=== PATIENT | male | born 1955 | race Caucasian/White ===

== ENCOUNTER 2020-05-01 10:44 | Inpatient (IN) ==
--- NOTE | 2020-04-18 15:29 | PAT Medication Instructions ---
Medication Instructions Date of Service April 18, 2020 Home Medications acetaminophen [Tylenol Extra Strength] 1,000 mg PO Q6H PRN atorvastatin [Lipitor] 20 mg PO PM cholecalciferol (vitamin D3) [Vitamin D3] 50 mcg PO QPM cyanocobalamin (vitamin B-12) 1,000 mcg PO QAM gabapentin 300 mg PO QAM hydrochlorothiazide 50 mg PO QAM DO NOT take the morning of surgery cyanocobalamin (vitamin B-12) 1,000 mcg PO QAM gabapentin 300 mg PO QAM hydrochlorothiazide 50 mg PO QAM Take morning of surgery With a small sip of water, OTHERWISE NOTHING TO EAT OR DRINK AFTER MIDNIGHT: acetaminophen [Tylenol Extra Strength] 1,000 mg PO Q6H PRN (if needed, may be taken up to four hours before surgery) Take evening before surgery acetaminophen [Tylenol Extra Strength] 1,000 mg PO Q6H PRN (if needed) atorvastatin [Lipitor] 20 mg PO PM cholecalciferol (vitamin D3) [Vitamin D3] 50 mcg PO QPM Other Notes If you have any questions please call us at [phone] or [phone] or [phone] or [phone]
--- NOTE | 2020-04-20 12:58 | Anesthesiology Consultation ---
Date of Service April 20, 2020 Assessment & Plan (1) Encounter for pre-operative examination: COVID Status: As of 04/20 assessment, patient denies travel to endemic area, known exposure/sick contacts, or symptoms of COVID19. Patient instructed that they and their household members must follow strict social distancing guidelines, wear a mask in public and avoid travel/events/gatherings for 14 days prior to surgery. Preoperative COVID19 testing to be completed prior to surgery per surgeon's arrangements (04/28). Patient made aware to self-isolate as much as possible between COVID testing and surgery. Patient is fully vaccinated. 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 Chart Review Chart Review: Acceptable Risk for Surgery and Patient seen in Pre Admission Testing Teaching & Discussion Instructed NPO after midnight before surgery, except medications with 15 cc of water. Medication instructions provided according to the PAT guidelines. History Surgery Operation Date: 05/05/20 07:45 Proposed Procedures p L3-L5 Decompression and Fusion Spinal Cord Monitoring - Tarun Cartwright, Height/Weight Height: 5 ft 8 in Weight: 87.5 kg Allergies Allergy/AdvReac Type Severity Reaction Status Date / Time No Known Allergies Allergy Verified 04/06/20 10:14 Medications Home Medications Medication Instructions Recorded Confirmed Last Taken acetaminophen [Tylenol Extra 1,000 mg PO Q6H PRN 04/06/20 04/06/20 Unknown Strength] atorvastatin [Lipitor] 20 mg PO PM 04/06/20 04/06/20 Unknown cholecalciferol (vitamin D3) 50 mcg PO QPM 04/06/20 04/06/20 Unknown [Vitamin D3] cyanocobalamin (vitamin B-12) 1,000 mcg PO QAM 04/06/20 04/06/20 Unknown gabapentin 300 mg PO QAM 04/06/20 04/06/20 Unknown hydrochlorothiazide 50 mg PO QAM 04/06/20 04/06/20 Unknown Past Medical History Medical History Chronic back pain TO LEGS Hyperlipidemia Hypertension Spinal stenosis Exercise / Class Metabolic Activity II 4-5 Yardwork/Stairs/Walk up hill Past Family History Family History Brother Family history of diabetes mellitus Father Family history of diabetes mellitus Past Surgical History Surgical History Cancer BASAL CELL/SQUAMOUS CELL EXCISION BACK History of adenoidectomy History of cardiac cath 1991-DUE TO FALSE POSITIVE STRESS TEST-NO STENTS-DX'D "PANIC ATTACK" History of cholecystectomy History of colonoscopy X 3 History of herniorrhaphy History of tonsillectomy Past Anesthesia History No Hx of Anesthesia Complications and No Family Hx of Anesthesia Complications History of PONV No Hx of PONV and No Hx of Motion Sickness Social History Smoking Status: Former smoker Do You Dip or Chew Tobacco: No Smoking End Date: QUIT 1975 Hx Alcohol Use: Yes Alcohol type: beer alcohol intake frequency: a few times a week Hx Substance Use: No Review of Systems Pt denies any recent chest pain, shortness of breath, palpitations, cough, fever, URI, or uncontrolled acid reflux. Physical Exam Vital Signs BP: 143/82 P: 65bpm SPO2: 97% RA T: 98.1 F R: 16 ENMT Mouth: + dental restorations (few crowns); no chipped teeth and no loose teeth Thyromental Distance: > or= 3.5 Finger Breadths Mallampati Class: III Neck normal visual inspection; neck extension not limited Respiratory normal respiratory effort, lungs clear to auscultation Cardiovascular RRR, no murmur, no edema Vessels: no carotid bruit Testing Laboratory Results 04/20/20 13:12 04/20/20 13:12 PT 10.0 Seconds (9.0-12.0) 04/20/20 13:12 INR 1.0 (0.9-1.1) 04/20/20 13:12 APTT 24.8 Seconds (21.0-31.0) 04/20/20 13:12 Urine Color Yellow 04/20/20 13:12 Urine Appearance Clear (Clear) 04/20/20 13:12 Urine pH 7.0 (4.5-7.5) 04/20/20 13:12 Ur Specific [place] 1.009 (1.000-1.030) 04/20/20 13:12 Urine Protein Negative (Negative) 04/20/20 13:12 Urine Glucose (UA) Negative (Negative) 04/20/20 13:12 Urine Ketones Negative (Negative) 04/20/20 13:12 Urine Nitrite Negative (Negative) 04/20/20 13:12 Ur Leukocyte Esterase Negative (Negative) 04/20/20 13:12 Blood Type B Positive 04/20/20 13:12 Antibody Screen NEGATIVE 04/20/20 13:12 Electrocardiogram Date: 04/05/20 Findings: + SB @ (53bpm) Chest X-Ray Date: 04/20/20 Findings: + NAD
--- NOTE | 2020-04-20 13:42 | XRay Report ---
XR chest Pre-admission PA/Lat HISTORY: Preop. COMPARISON: None. FINDINGS: An 8 mm right upper lobe nodule. The density is greater than the adjacent bones and therefo re likely represents a calcified granuloma. Otherwise, the lungs are clear. The heart is normal in si ze. No pleural effusions. No pneumothorax. IMPRESSION: No acute process. ACT 112: Negative or not required by law. Electronically signed by: Danny Wynn M.D. 04/20/2020 1:41 PM
[2020-04-20 14:14] LABS: Basophils # (auto) 0.05 K/uL (0-0.2); Basophils % (auto) 0.8 %; Eosinophils # (auto) 0.16 K/uL (0-0.5); Eosinophils % (auto) 2.5 %; Hematocrit (blood only) 43.2 % (42-52); Hemoglobin 15.2 g/dL (14.0-18.0); Immature Granulocytes # (auto) 0.01 K/uL (0.00-0.02); Immature Granulocytes % (auto) 0.2 %; Lymphocytes # (auto) 2.45 K/uL (1.2-3.4); Lymphocytes % (auto) 38.8 %; Mean Corpuscular Hemoglobin 32.4 pg (25-34); Mean Corpuscular Hgb Conc 35.2 g/dL (32-36); Mean Corpuscular Volume 92.1 fL (80-100); Mean Platelet Volume 12.8 fL (7.4-10.4); Monocytes # (auto) 0.41 K/uL (0.11-0.59); Monocytes % (auto) 6.5 %; Neutrophils # (auto) 3.24 K/uL (1.4-6.5); Neutrophils % (auto) 51.2 %; Platelet Count 221 K/uL (130-400); RDW Coefficient of Variation 12.7 % (11.5-14.5); RDW Standard Deviation 42.7 fL (36.4-46.3); Red Blood Count 4.69 M/uL (4.7-6.1); White Blood Count 6.32 K/uL (4.8-10.8)
[2020-04-20 14:27] LABS: Partial Thromboplastin Ratio 0.9; Partial Thromboplastin Time 24.8 Seconds (21.0-31.0)
[2020-04-20 14:30] LABS: Appearance Urine Clear (Clear); BUN Creatinine Ratio 18.2 (10-20); Bilirubin Urine Negative (Negative); Blood Urine Negative (Negative); Calcium 9.2 mg/dl (8.5-10.1); Color Urine Yellow; Creatinine Clr Calc Pharmacy 104.2 ml/min; Est GFR (African American) 110.8; Est GFR (Non-African American) 95.6; Glucose Urine UA Negative (Negative); Ketones Urine Negative (Negative); Leukocyte Esterase Urine Negative (Negative); Nitrite Urine Negative (Negative); Potassium 3.4 mmol/L (3.5-5.1); Protein Urine Negative (Negative); Specific Gravity Urine 1.009 (1.000-1.030); Urobilinogen Urine Negative (Negative)
[~2020-05-01 10:44] MED LIST: ACETAMINOPHEN 500 MG TAB PO SCH; CeleBREX 200 MG CAP PO SCH; GABAPENTIN 300 MG CAP PO SCH; LR 15ML/HR IV SCH; ceFAZolin 2000MG 2,000 MG/15 ML SYR IV SCH
[2020-05-01] MEDS ORDERED: PROMETHAZINE HCL 6.25 MG in SODIUM CHLORIDE 0.9% 50 ML IV PRN (12:17)
[2020-05-01] MEDS ORDERED: ATROPINE SULFATE 0.1 MG/ML 10ML SYR IV PRN (12:17)
[2020-05-01] MEDS ORDERED: ePHEDrine sulfate 50 MG/ML AMP IV PRN (12:17)
[2020-05-01] MEDS ORDERED: ONDANSETRON INJ 2 MG/ML 2 ML VIAL IV PRN ×2 (12:17→16:21)
[2020-05-01] MEDS ORDERED: HYDROmorphone INJ 2 MG/ML SYR/VIAL IV PRN (12:17)
[2020-05-01] MEDS ORDERED: fentaNYL citrate 100 MCG/2 ML VIAL IV PRN (12:17)
[2020-05-01] MEDS ORDERED: MIDAZOLAM HCL 1 MG/ML 2ML VIAL ONE (12:18)
[2020-05-01] MEDS ORDERED: fentaNYL citrate 100 MCG/2 ML VIAL ONE (12:19)
--- NOTE | 2020-05-01 12:35 | History & Physical Bridge Note ---
Date of Service May 01, 2020 History & Physical Bridge Note I have examined the patient, reviewed the History & Physical and in the interval since the performance of the History & Physical I have noted the following changes of clinical significance: no changes noted
--- NOTE | 2020-05-01 12:36 | History & Physical Report ---
Date of Service May 01, 2020 Assessment & Plan (1) Neurogenic claudication due to lumbar spinal stenosis: Admission and Anticipated Discharge Date Admission Date: L3-L5 decompression fusion History of Present Illness Chief Complaint: Back and bilateral leg pain Primary Care Provider: Alicia Joseph DO This is a 64-year-old male presents with chronic persistent back and bilateral leg pain. After failing course of nonoperative care is here for surgical invention. Allergies Allergy/AdvReac Type Severity Reaction Status Date / Time No Known Allergies Allergy Verified 05/01/20 11:05 Home Medications Medication Instructions Recorded Confirmed Type acetaminophen [Tylenol Extra 1,000 mg PO Q6H PRN 04/06/20 05/01/20 History Strength] atorvastatin [Lipitor] 20 mg PO PM 04/06/20 05/01/20 History cholecalciferol (vitamin D3) 50 mcg PO QPM 04/06/20 05/01/20 History [Vitamin D3] cyanocobalamin (vitamin B-12) 1,000 mcg PO QAM 04/06/20 05/01/20 History gabapentin 300 mg PO QAM 04/06/20 05/01/20 History hydrochlorothiazide 50 mg PO QAM 04/06/20 05/01/20 History Past Med/Surg History Medical History Chronic back pain TO LEGS Hyperlipidemia Hypertension Spinal stenosis Surgical History Cancer BASAL CELL/SQUAMOUS CELL EXCISION BACK History of adenoidectomy History of cardiac cath 1991-DUE TO FALSE POSITIVE STRESS TEST-NO STENTS-DX'D "PANIC ATTACK" History of cholecystectomy History of colonoscopy X 3 History of herniorrhaphy History of tonsillectomy Family History Brother Family history of diabetes mellitus Father Family history of diabetes mellitus Social History Smoking Status: Former smoker Smoking End Date: QUIT 1975; Second Hand Exposure: No; Do You Dip or Chew Tobacco: No; Hx Alcohol Use: Yes Alcohol type: beer Hx Substance Use: No Preferred Language: Lithuanian Communication Ability: Effective Braker Passenger Train Required: No Beliefs That Will Affect Care: None Current Living Situation: Spouse Other Information That Helps Us Care for You: No Feels Safe at Home: Yes Safety Concerns: Feels Safe At This Time Assistive Devices: Glasses and Hearing Aid - Bilateral Physical Exam Physical Exam: Patient is alert and oriented Heart regular rate and rhythm Lungs clear to auscultation Results & Data ([facility]) Vital Signs (Past 12 Hours) Vital Signs Temp Pulse Resp BP Pulse Ox 05/01/20 11:00 36.5 C 67 20 147/76 H 98
[2020-05-01] MEDS ORDERED: BUPIVACAINE/EPINEPHRINE 0.5% MPF 1:200,000 30 ML VIAL ONE (12:43)
[2020-05-01] MEDS ORDERED: BACITRACIN INJ 50,000 UNIT VIAL ONE (12:43)
[2020-05-01] MEDS ORDERED: FLOSEAL HEMOSTATIC MATRIX 10ML TOP ONE (13:50)
[2020-05-01] MEDS ORDERED: NEOSTIGMINE METHYLSULFATE 1 MG/ML 10ML VIAL ONE (14:50)
[2020-05-01] MEDS ORDERED: LIDOCAINE HCL 2% 2 ML VIAL/AMP(20MG/ML) INFIL ONE (14:50)
[2020-05-01] MEDS ORDERED: DEXAMETHASONE SOD INJ 4 MG/ML VIAL ONE (14:50)
[2020-05-01] MEDS ORDERED: GLYCOPYRROLATE 0.2 MG/ML VIAL ONE (14:50)
[2020-05-01] MEDS ORDERED: PROPOFOL IV EMULSION 10 MG/ML 20 ML VIAL IV ONE (14:50)
[2020-05-01] MEDS ORDERED: ePHEDrine sulfate 50 MG/ML SYR ONE (14:50)
[2020-05-01] MEDS ORDERED: ONDANSETRON INJ 2 MG/ML 2 ML VIAL ONE (14:50)
[2020-05-01] MEDS ORDERED: SUCCINYLCHOLINE CHLORIDE 20 MG/ML 10 ML VIAL IV ONE (14:51)
[2020-05-01] MEDS ORDERED: HYDROmorphone INJ 2 MG/ML SYR/VIAL ONE (14:52)
--- NOTE | 2020-05-01 15:01 | Operative Report ---
Post Operative Report Pre & Post Diagnosis Operation Date: 05/01/20 12:25 Pre-Op Diagnosis: Lumbar Spinal Stenosis with Neurogenic Claudicatio Post-Op Diagnosis: Lumbar Spinal Stenosis with Neurogenic Claudicatio I identified the patient and participated in the time-out.: Yes Procedure Operation Date: 05/01/20 12:25 Actual Procedures #1 Lumbar compression with bilateral medial facetectomies and foraminotomies L3-4 and L4-5. #2 posterior spinal fusion L2-3 L3-4 per #3 placement posterior instrumentation L3-4 and L4-5. #4 interbody fusion L4-5. #5 placement peek cage 12 x 26 mm at L4-5. #6 placement locally harvested morselized autograft in the posterior lateral gutters. #7 placement infuse collagen sponge, master graft in the posterior lateral gutters and ostial amp interbody space. Surgeon Tarun Cartwright DO Energy Manager Jennie Damon Estimated Blood Loss 100 Findings Consistent with Post-Op Diagnosis Specimens None Indications This is a 64-year-old male who presents with above-mentioned diagnosis after failing course of nonoperative care is here for the above-mentioned procedure. Description of Procedure Patient was met with identified informed consent obtained. Patient was then taken to the operative suite underwent a patient placed in a prone position [facility] table top Sonny frame. All bony prominences well-padded eyes inspected to ensure no external pressure placed upon the. This point the lumbar spine was prepped and draped in a sterile fashion. Sharp dissection with the assistance of Bovie cautery was performed down to and exposing the lamina and transverse processes of L3-L4 and L5 bilaterally. From caudal to cephalad fashion complete laminectomy of L4 and L3 was performed including bilateral medial facetectomies and foraminotomies addressing severe spinal stenosis. Pedicle screws were then placed in L3-L4-L5 bilaterally with assistance of fluoroscopy the purposes javy placed. By way of a transfemoral approach on right complete discectomy was performed endplates curetted to subcortical any bone and a 12 x 26 mm peek cage filled with osteobone graft tapped in position. The rods were then locked into final position bilaterally. The transverse processes of L3-L4-L5 were then burred to subcortical bleeding bone. Infuse collagen sponge master graft local autograft was placed in the posterior lateral gutters. 15 round SANDRA drain inserted. The incision was then closed with 1 Vicryl in the fascia 2-0 Vicryl subcutaneously and 4 Monocryl for final skin closure. Steri-Strip sterile dressings placed. Patient waken taken PACU stable condition. Please note spinal cord monitoring was utilized at the procedure no changes noted. Lastly Jennie Damon was present at the entire procedure and all the patient positioning complex portions of the surgery and final skin closure. I attest to the content of the Intraoperative Record and any orders documented therein. Any exceptions are noted below.
--- NOTE | 2020-05-01 15:05 | Fluoroscopy Report ---
FL lumbar spine 2-3V HISTORY: 64 years-old Male L3-L5 DECOMPRESSION AND FUSION STATUS post lumbar spine fusion COMPARISON: MR lumbar spine 03/23/2020 TECHNIQUE: 2 spot fluoroscopic images of the lumbar spine were obtained utilizing 20.6 seconds fluoro scopy time FINDINGS: Posterior interbody javy and screw fusion with laminectomy changes at L3-L5. Discectomy changes at L4- L5. Alignment is satisfactory and the hardware appears intact. No acute fracture or unexpected opaque foreign body. Multilevel spondylitic spurring. IMPRESSION: Fluoroscopic assistance as above. ACT 112: Negative or not required by law. The above report was generated using voice recognition software. It may contain grammatical, syntax o r spelling errors. Electronically signed by: Amanuel Chaudhry M.D. 05/01/2020 3:04 PM
--- NOTE | 2020-05-01 15:48 | Anesthesiology Progress Note ---
Date of Service May 01, 2020 Anesthesia Post Procedure Vital Signs Vital Signs: Temp Pulse Pulse Resp BP Pulse Ox 05/01/20 15:40 66 18 109/57 L 95 05/01/20 15:30 68 14 113/55 L 97 05/01/20 15:20 56 L 18 101/56 L 97 05/01/20 15:16 36.3 C L 55 L 21 96/51 L 100 05/01/20 11:00 36.5 C 67 20 147/76 H 98 Transfer of Care Handoff Completed per policy Notes Mental Status: alert / awake / arousable and participated in evaluation Patient Amnestic to Procedure: Yes Nausea / Vomiting: adequately controlled Pain: adequately controlled Airway Patency, RR, SpO2: stable & adequate BP & HR: stable & adequate Hydration State: stable & adequate Anesthetic Complications: no major complications apparent
[2020-05-01] MEDS ORDERED: HYDROmorphone INJ 1 MG/ML SYRINGE IV PRN (16:21)
[2020-05-01] MEDS ORDERED: MAGNESIUM HYDROXIDE SUSP 30 ML UDC PO PRN (16:21)
[2020-05-01] MEDS ORDERED: LORazepam 0.5 MG TAB PO PRN (16:21)
[2020-05-01] MEDS ORDERED: DO NOT ADMINISTER FLU VACCINE PRN (16:21)
[2020-05-01] MEDS ORDERED: NALOXONE HCL 0.4 MG/1 ML VIAL/CARP IV PRN (16:21)
[2020-05-01] MEDS ORDERED: SOD PHOSPHATE/SOD BIPHOSPHATE ENEMA 132 ML BTL PR PRN (16:21)
[2020-05-01] MEDS ORDERED: ACETAMINOPHEN 500 MG TAB PO PRN (16:21)
[2020-05-01] MEDS ORDERED: ALUMINUM/MAGNESIUM SUSP 30 ML UDC PO PRN (16:21)
[2020-05-01] MEDS ORDERED: hydrOXYzine HCl 25 MG TAB PO PRN (16:21)
[2020-05-01] MEDS ORDERED: NON-FORMULARY MEDICATION (Acetaminophen 500 mg Capsule) PO PRN (16:21)
[2020-05-01] MEDS ORDERED: ACETAMINOPHEN 1,000 MG/100 ML VIAL IV PRN (16:21)
[2020-05-01] MEDS ORDERED: FAMOTIDINE 20 MG TAB PO PRN (16:21)
[2020-05-01] MEDS ORDERED: traMADol HCL 50 MG TABLET PO PRN (16:21)
[2020-05-01] MEDS ORDERED: LORazepam 0.5 MG/1 ML VIAL IV PRN (16:21)
[2020-05-01] MEDS ORDERED: PROMETHAZINE HCL 12.5 MG in SODIUM CHLORIDE 0.9% 50 ML IV PRN (16:21)
[2020-05-01] MEDS ORDERED: DO NOT ADMINISTER PNEUMOCOCCAL VACCINE PRN (16:21)
[2020-05-01] MEDS ORDERED: diphenhydrAMINE Capsule 25 MG CAP PO PRN (16:21)
[2020-05-01] MEDS ORDERED: HYDROmorphone INJ 0.5 MG/0.5 ML SYR IV PRN (16:21)
[2020-05-01] MEDS ORDERED: METOCLOPRAMIDE HCL INJ 5 MG/ML 2 ML VIAL IV PRN (16:21)
[2020-05-01] MEDS ORDERED: ONDANSETRON 4 MG OD TAB PO PRN (16:21)
[2020-05-01] MEDS: LACTATED RINGER'S 1,000 ML IV SCH (16:53)
[2020-05-01] MEDS: KETOROLAC TROMETHAMINE 15 MG/ML VIAL IV SCH (17:45)
--- NOTE | 2020-05-01 18:28 | Hospitalist Progress Note ---
Date of Service May 01, 2020 Assessment & Plan (1) Neurogenic claudication due to lumbar spinal stenosis: post op, doing well. overall per ortho (2) Hypertension: BP acceptable. continue home hydrochlorothiazide. follow (3) Hyperlipidemia: continue atorvastatin (4) DVT prophylaxis: per ortho (SCDs) (5) Discharge planning issues: appears to be doing well post op. continue current care and follow. Admission and Anticipated Discharge Date Admission Date: May 01, 2020 Subjective feeling good post op no significant pain and notes that legs feel better already. "i'm ready to go hiking or biking" no complaints at this time Review of Systems Review of Systems: All systems reviewed & are unremarkable except as noted in HPI & below Physical Exam Physical Exam: gen aaox3 pleasant nad heent nc at mmm breathing unlabored no accessory muscles good effort skin no rashes no pallor or icterus neuro no focal deficits Results & Data Results & Data ([facility]) Vital Signs (Past 12 Hours) Vital Signs Temp Pulse Pulse Pulse Resp BP Pulse Ox 05/01/20 17:40 97.2 F L 78 18 113/64 94 05/01/20 16:50 98.4 F 66 16 102/62 93 05/01/20 16:44 82 16 114/71 96 05/01/20 16:21 97.5 F L 67 16 113/68 99 05/01/20 16:00 97.5 F L 73 15 114/66 97 05/01/20 15:50 73 14 102/57 L 97 05/01/20 15:40 66 18 109/57 L 95 05/01/20 15:30 68 14 113/55 L 97 05/01/20 15:20 56 L 18 101/56 L 97 05/01/20 15:16 97.3 F L 55 L 21 96/51 L 100 05/01/20 11:00 97.7 F 67 20 147/76 H 98 PG Care Time/CCT Total # of Minutes Spent Total Time Spent with Patient: Total time spent is greater than 50% in coordination of care (as documented) at patient's floor/unit and/or counseling patient: Coding Level of Care Code 76691 Subseq Hosp Care Lvl 2 Diagnoses Neurogenic claudication due to lumbar spinal stenosis M48.062 Hypertension I10 Hyperlipidemia E78.5 DVT prophylaxis Z29.9 Discharge planning issues Z02.9
[2020-05-01] MEDS: oxyCODONE HCL IR 5 MG TAB (IMMEDIATE RELEASE) PO PRN (19:50)
[2020-05-01] MEDS: ATORVASTATIN 20 MG TAB PO SCH (20:52)
[2020-05-01] MEDS: ceFAZolin 2000MG 2,000 MG/15 ML SYR IV SCH (20:52)
[2020-05-01] MEDS: CHOLECALCIFEROL 1,000 UNITS 25 MCG TAB PO SCH (20:53)
[2020-05-01] MEDS: DOCUSATE SODIUM/SENNA 50/8.6MG TAB PO SCH (20:53)
[2020-05-02] MEDS: oxyCODONE HCL IR 5 MG TAB (IMMEDIATE RELEASE) PO PRN ×2 (00:07→20:04)
[2020-05-02] MEDS: KETOROLAC TROMETHAMINE 15 MG/ML VIAL IV SCH ×3 (00:08→12:22)
[2020-05-02] MEDS: LACTATED RINGER'S 1,000 ML IV SCH (03:14)
[2020-05-02] MEDS ORDERED: LACTATED RINGER'S 1,000 ML IV SCH (03:30)
[2020-05-02] MEDS: ceFAZolin 2000MG 2,000 MG/15 ML SYR IV SCH (05:35)
[2020-05-02 06:38] LABS: Hematocrit (blood only) 33.7 % (42-52); Hemoglobin 11.7 g/dL (14.0-18.0); Immature Granulocytes # (auto) 0.02 K/uL (0.00-0.02); Immature Granulocytes % (auto) 0.1 %; Lymphocytes # (auto) 1.33 K/uL (1.2-3.4); Lymphocytes % (auto) 8.8 %; Mean Corpuscular Hemoglobin 32.1 pg (25-34); Mean Corpuscular Hgb Conc 34.7 g/dL (32-36); Mean Corpuscular Volume 92.3 fL (80-100); Mean Platelet Volume 11.2 fL (7.4-10.4); Monocytes # (auto) 1.34 K/uL (0.11-0.59); Monocytes % (auto) 8.8 %; Neutrophils # (auto) 12.48 K/uL (1.4-6.5); Neutrophils % (auto) 82.3 %; Platelet Count 211 K/uL (130-400); RDW Coefficient of Variation 12.5 % (11.5-14.5); RDW Standard Deviation 42.6 fL (36.4-46.3); Red Blood Count 3.65 M/uL (4.7-6.1); White Blood Count 15.17 K/uL (4.8-10.8)
[2020-05-02 07:07] LABS: BUN Creatinine Ratio 18.1 (10-20); Calcium 8.5 mg/dl (8.5-10.1); Est GFR (African American) 98.8; Est GFR (Non-African American) 85.2; Potassium 3.5 mmol/L (3.5-5.1)
[2020-05-02] MEDS: CYANOCOBALAMIN 500 MCG TABLET (VITAMIN B-12) PO SCH (08:51)
[2020-05-02] MEDS: GABAPENTIN 300 MG CAP PO SCH (08:51)
[2020-05-02] MEDS ORDERED: hydroCHLOROthiazide 25 MG TAB PO SCH (09:00)
--- NOTE | 2020-05-02 10:53 | Orthopedic Progress Note ---
Date of Service May 02, 2020 Assessment & Plan (1) Neurogenic claudication due to lumbar spinal stenosis: Admission and Anticipated Discharge Date Admission Date: May 01, 2020 At this time we will continue physical therapy monitor his SANDRA output anticipate discharge home in the next few days. Subjective Patient's back pain is controlled leg pain improved. Physical Exam Physical Exam: On exam patient is in the chair at the bedside. Is good strength testing. Appears comfortable. Results & Data ([facility]) Vital Signs (Past 12 Hours) Vital Signs Temp Pulse Resp BP BP Pulse Ox 05/02/20 09:11 75 16 96/59 L 93 05/02/20 08:16 36.9 C 72 17 89/53 L 99 05/02/20 03:24 69 16 105/57 L 97 05/02/20 02:58 36.4 C L 61 16 90/49 L 96
[2020-05-02] MEDS: POLYETHYLENE (MIRALAX) 17 GM PACK PO SCH ×2 (12:21→17:57)
--- NOTE | 2020-05-02 19:07 | Hospitalist Progress Note ---
Date of Service May 02, 2020 Assessment & Plan (1) Neurogenic claudication due to lumbar spinal stenosis: post op, doing well overall, did have a degree of not unexpected acute blood loss anemia, with resultant lower and (but asymptomatic) blood pressure. overall per ortho (2) Hypertension: As above noted, blood pressure is a little bit on the low end of acceptable, hydrochlorothiazide held. Follow into tomorrow (3) Hyperlipidemia: continue atorvastatin (4) DVT prophylaxis: per ortho (SCDs) (5) Discharge planning issues: appears to be doing well post op. continue current care and follow. Admission and Anticipated Discharge Date Admission Date: May 01, 2020 Subjective Feeling okay. Had a brief headache this morning, on the right side of his head, but it totally resolved. No weakness no lightheadedness. No significant pain. Able to get out of bed without much difficulty. Case discussed with orthopedics as well. Review of Systems Review of Systems: All systems reviewed & are unremarkable except as noted in HPI & below Physical Exam Physical Exam: General is awake and alert pleasant no distress. HEENT normocephalic atraumatic mucous membranes moist. Breathing unlabored no accessory muscle use good effort. Skin shows no rashes no pallor or icterus. Neuro shows no focal deficits. Results & Data Results & Data ([facility]) Vital Signs (Past 12 Hours) Vital Signs Temp Pulse Resp BP BP Pulse Ox 05/02/20 14:42 98.8 F 79 16 110/66 95 05/02/20 12:24 103/62 05/02/20 09:11 75 16 96/59 L 93 05/02/20 08:16 98.4 F 72 17 89/53 L 99 PG Care Time/CCT Total # of Minutes Spent Total Time Spent with Patient: Total time spent is greater than 50% in coordination of care (as documented) at patient's floor/unit and/or counseling patient: Coding Level of Care Code 82692 Subseq Hosp Care Lvl 3 Diagnoses Neurogenic claudication due to lumbar spinal stenosis M48.062 Hypertension I10 Hyperlipidemia E78.5 DVT prophylaxis Z29.9 Discharge planning issues Z02.9
[2020-05-02] MEDS: CHOLECALCIFEROL 1,000 UNITS 25 MCG TAB PO SCH (20:05)
[2020-05-02] MEDS: DOCUSATE SODIUM/SENNA 50/8.6MG TAB PO SCH (20:05)
[2020-05-02] MEDS: ATORVASTATIN 20 MG TAB PO SCH (20:05)
[2020-05-03] MEDS: POLYETHYLENE (MIRALAX) 17 GM PACK PO SCH ×5 (00:44→21:50)
[2020-05-03] MEDS: oxyCODONE HCL IR 5 MG TAB (IMMEDIATE RELEASE) PO PRN ×3 (02:10→20:15)
[2020-05-03] MEDS: GABAPENTIN 300 MG CAP PO SCH (07:54)
[2020-05-03] MEDS: CYANOCOBALAMIN 500 MCG TABLET (VITAMIN B-12) PO SCH (07:54)
[2020-05-03] MEDS: dexAMETHasone 8 MG in SYRINGE 0 ML IV SCH (07:54)
--- NOTE | 2020-05-03 13:03 | Orthopedic Progress Note ---
Date of Service May 03, 2020 Assessment & Plan (1) Neurogenic claudication due to lumbar spinal stenosis: Admission and Anticipated Discharge Date Admission Date: May 01, 2020 At this time we will continue physical therapy monitor his SANDRA output anticipate discharge home tomorrow. Subjective Back pain controlled leg symptoms markedly improved. Physical Exam Physical Exam: Patient is in the chair at the bedside. Is comfortable. Skin strength testing.
[2020-05-03] MEDS ORDERED: bisacodyL 10 MG SUPP PR PRN (15:01)
--- NOTE | 2020-05-03 17:32 | Billing Data ---
Date of Service May 03, 2020 Coding Level of Care Code 98681 Subseq Hosp Care Lvl 2
--- NOTE | 2020-05-03 17:32 | Hospitalist Progress Note ---
Date of Service May 03, 2020 Assessment & Plan (1) Neurogenic claudication due to lumbar spinal stenosis: post op, doing well overall, did have a degree of not unexpected acute blood loss anemia, with resultant lower and (but asymptomatic) blood pressure. overall per ortho (2) Hypertension: BPs have come up to a more normal range. Can resume his hydrochlorothiazide at time of discharge (3) Hyperlipidemia: continue atorvastatin (4) DVT prophylaxis: per ortho (SCDs) (5) Discharge planning issues: appears to be doing well post op. Is medically stable. I will sign off at this time, and I am available if needed. Thank you. Admission and Anticipated Discharge Date Admission Date: May 01, 2020 Subjective Feeling better, pain under good control overall. Anticipates home tomorrow. No complaints. Review of Systems Review of Systems: All systems reviewed & are unremarkable except as noted in HPI & below Physical Exam Physical Exam: General he is awake and alert pleasant no distress. HEENT normocephalic atraumatic mucous membranes moist. Breathing unlabored no accessory muscle use good effort. Skin shows no rashes no pallor or icterus. Neuro shows no focal deficits. Results & Data Results & Data ([facility]) Vital Signs (Past 12 Hours) Vital Signs Pulse Resp BP Pulse Ox 05/03/20 14:17 75 16 124/70 93 PG Care Time/CCT Total # of Minutes Spent Total Time Spent with Patient: Total time spent is greater than 50% in coordination of care (as documented) at patient's floor/unit and/or counseling patient: Coding Level of Care Code 11239 Subseq Hosp Care Lvl 2 Diagnoses Neurogenic claudication due to lumbar spinal stenosis M48.062 Hypertension I10 Hyperlipidemia E78.5 DVT prophylaxis Z29.9 Discharge planning issues Z02.9
[2020-05-03] MEDS: DOCUSATE SODIUM/SENNA 50/8.6MG TAB PO SCH (20:16)
[2020-05-03] MEDS: CHOLECALCIFEROL 1,000 UNITS 25 MCG TAB PO SCH (20:16)
[2020-05-03] MEDS: ATORVASTATIN 20 MG TAB PO SCH (20:16)
[2020-05-04] MEDS: oxyCODONE HCL IR 5 MG TAB (IMMEDIATE RELEASE) PO PRN ×2 (03:19→10:30)
[2020-05-04] MEDS: POLYETHYLENE (MIRALAX) 17 GM PACK PO SCH (05:54)
[2020-05-04] MEDS: GABAPENTIN 300 MG CAP PO SCH (08:31)
[2020-05-04] MEDS: dexAMETHasone 8 MG in SYRINGE 0 ML IV SCH (08:31)
[2020-05-04] MEDS: CYANOCOBALAMIN 500 MCG TABLET (VITAMIN B-12) PO SCH (08:32)
--- NOTE | 2020-05-04 08:34 | Discharge Summary ---
Date of Service May 04, 2020 Admission HPI Per Admitting Provider This is a 64-year-old male presents with chronic persistent back and bilateral leg pain. After failing course of nonoperative care is here for surgical invention. Principal Diagnosis Lumbar spinal stenosis with neurogenic claudication Discharge Data Allergies Allergy/AdvReac Type Severity Reaction Status Date / Time No Known Allergies Allergy Verified 05/01/20 11:05 Consultations 05/01/20 16:21 Consult Case Management - Discharge Planning Routine Consult Hospitalist Routine Procedures Performed Operation Date: 05/01/20 12:25 Actual Procedures p L3-L5 Decompression and Fusion, Spinal Cord Monitoring - Tarun Cartwright DO Ordered Studies 05/01/20 12:25 FL fluoroscopy <1hr Routine FL lumbar spine 2-3V Routine Hospital Course (1) Neurogenic claudication due to lumbar spinal stenosis: Patient went lumbar decompression fusion tolerated this well was taken to orthopedic floor postoperatively postop day 1 is up and ambulating progressed to postop day #2 postop day #3 SANDRA drain decreased appropriately. Excellent strength testing. Pain well controlled. Socially discharged home. Total Time Total Time Spent Total Time Spent (In Minutes): 20 minutes Discharge Plan Discharge Items Patient Disposition: Home - Self-Care Reason For Visit: Lumbar Spinal Stenosis with Neurogenic Claudicatio Discharge Diagnosis: Lumbar spinal stenosis with neurogenic claudication Activity: As commented below Non-emergency contact: Primary Care Provider Call non-emergency contact if: you have any medication questions Follow-up/Referrals: Alicia Joseph DO [Primary Care Provider] - Diet: Regular Addtl Attending Provider Instructions: ACTIVITY RECOMMENDATIONS: SELF CARE INSTRUCTIONS AFTER THORACIC/LUMBAR FUSIONS 1. You may walk to your tolerance. It is good exercise for your legs and back. Expect some back and intermittent leg aches and pains. 2. You may perform "counter-top" level activities (make a sandwich, jessica with a project, etc.). 3. No bending or lifting of more than 10 pounds or back twisting of any nature (roll like a log when turning in bed). 4. You may ride in a car for 20-30 minutes at a time. No driving until after your first visit with your doctor. 5. Frequent changes of position and restricting sitting to 30 minutes at a time will help limit the amount of back spasms and stiffness you may experience. 6. You may discontinue the use of ambulatory aids (cane, crutches, etc.) once your strength and confidence allow. 7. You may installer interior assemblies the shower and let water strike your incision when you arrive home at least once daily. Do not take a tub bath, sit in a hot tub or go into a swimming pool until after your first recheck in the office. SPECIAL CARE INSTRUCTIONS: VERY IMPORTANT TO READ AND REVIEW A. Your surgical incision has been closed with a cosmetic suture under the skin that will dissolve in about 6 weeks. In 14 days, you can use a pair of clean scissors and cut the suture that is left outside of the skin at the ends of your incision. 1. The small skin tapes can be removed 7 days after surgery if they have not fallen off by that point. 2. You may keep the wound open to air as much as possible to promote healing after post-op day number 5 unless told otherwise by your doctor. 3. If you think the wound looks like it is becoming infected (redness or worsening drainage) and/or you are experiencing fever, chill or worsening back pain and muscle spasms, contact the office so that we may evaluate you as soon as possible. B. Complications are uncommon, but please contact us if you have any signs or symptoms of: 1. wound infection (fever higher than 102.5 degrees F, redness, separation of wound, drainage, or increasing pain from the incision) 2. blood clots in legs (pain, swelling, redness and warmth in legs) 3. urinary tract infection (fever higher than 102.5 degrees F, burning upon urination or increased frequency of urination) 4. nerve problems (inability to walk on your toes or heels, numbness, loss of bowel or bladder control) 5. any other symptoms that concern you C. Please call the office at if you have any concerns or questions about your operation or recovery. D. No smoking! Smoking drastically decreases the chance of a solid fusion. E. Do not take any anti-inflammatory medications (Indocin, Advil, Motrin, Aspirin, Naprosyn, etc.) as these may inhibit the chance of a solid fusion. Tylenol is okay to take for pain. MANAGING PAIN AFTER SPINAL SURGERY 1. Narcotic medication is intended for short-term use and will be provided for surgical pain. Surgical pain usually lasts for a period of 4-6 weeks. Narcotic medication includes Percocet, Vicodin, Darvocet, Tylenol #3 or Lortab. 2. Longer-term pain is more appropriately treated with non-narcotic medication such as Tylenol ES. 3. Muscle spasm is not appropriately treated with narcotics. Muscle relaxers such as Soma, Flexeril or Skelaxin can be used along with Tylenol ES. 4. Remember that we all live with some "aches and pains". This is not unusual or uncommon after an injury or as we get older. a. Back pain is expected and may include muscle spasms for 4 to 6 weeks after surgery. The pain should gradually improve. If the pain worsens for no apparent reason, please contact the office. b. Intermittent leg pain may also be experienced and should not be concerned about unless it worsens for no apparent reason. If so, please contact the office. 5. We will provide appropriate medication within the normal guidelines of their prescribed use. We will also be very cautious and aware of potential abuse and extended duration of patients' medication needs. a. Pain medications are for your comfort and to assist with sleep and rest so that the tissue can heal. They are not provided in order to return to normal activity and should not be used through the day. To do so or worsening pain at night can result from ongoing tissue damage and development of tolerance to the prescribed medicine. 6. Please allow 2-3 days to process refills. Prescriptions will not be mailed but must be picked up at the office. FOLLOW UP VISIT: Keep your scheduled follow-up appointment. Any questions, please call the office at . Pending Studies at Discharge: No Stand-Alone Forms: [facility] [employer], Smoking Cessation Medications and DC Order Prescriptions: New oxycodone 5 mg tablet 5 mg PO Q6H PRN (Reason: pain, severe) Qty: 30 RF: 0 tramadol 50 mg tablet 50 mg PO Q6H PRN (Reason: pain, moderate) Qty: 30 RF: 0 Continued atorvastatin [Lipitor] 20 mg Tablet 20 mg PO PM RF: 0 hydrochlorothiazide 50 mg Tablet 50 mg PO QAM RF: 0 gabapentin 300 mg Capsule 300 mg PO QAM RF: 0 acetaminophen 500 mg Capsule 1,000 mg PO Q6H PRN (Reason: Pain) RF: 0 cholecalciferol (vitamin D3) [Vitamin D3] 50 mcg (2,000 unit) Tablet 50 mcg PO QPM RF: 0 cyanocobalamin (vitamin B-12) 1,000 mcg Capsule 1,000 mcg PO QAM RF: 0 Discharge Orders: Discharge Order (Routine); Ordered 05/04/20 Ordered By: Tarun Cartwright Admission Data Admit Date/Time: 05/01/20 15:29 Attending Provider: Tarun Cartwright Admit Provider: Tarun Cartwright Primary Care Provider: Alicia Joseph Other Providers: Arnulfo Bolaños
== END 2020-05-04 10:58 | disposition home or self-care (01) ==
LOC: ASU 10:44 → 3E 15:29

== ENCOUNTER 2022-12-16 10:51 | Observation (INO) ==
--- NOTE | 2022-11-25 14:22 | PAT Medication Instructions ---
Medication Instructions Date of Service November 25, 2022 Home Medications atorvastatin 20 mg tablet (Lipitor) 20 mg PO PM gabapentin 300 mg capsule 100 mg PO QAM hydrochlorothiazide 50 mg tablet 50 mg PO QAM bupropion HCl 300 mg 24 hr tablet, extended release (Wellbutrin XL) See Rx In structions PO QAM gabapentin 100 mg capsule 200 mg PO HS ibuprofen 400 mg tablet 400 mg PO BID ASK your surgeon for instructions ibuprofen 400 mg tablet 400 mg PO BID DO NOT take the morning of surgery hydrochlorothiazide 50 mg tablet 50 mg PO QAM Take morning of surgery With a small sip of water, OTHERWISE NOTHING TO EAT OR DRINK AFTER MIDNIGHT: gabapentin 300 mg capsule 100 mg PO QAM bupropion HCl 300 mg 24 hr tablet, extended release (Wellbutrin XL) See Rx Instructions PO QAM Take evening before surgery atorvastatin 20 mg tablet (Lipitor) 20 mg PO PM gabapentin 100 mg capsule 200 mg PO HS Other Notes If you have any questions please call us at [phone] or [phone] or [phone] or [phone]
--- NOTE | 2022-11-29 11:18 | Anesthesiology Consultation ---
Date of Service November 29, 2022 Assessment & Plan (1) Encounter for pre-operative examination: - Infectious disease screening: Per assessment on 11/29/22: No known infectious disease contacts or current infectious disease symptoms. No noted Covid positive test result in past 90 days. - Outpatient joint assessment: Pt currently scheduled for inpatient pathway. If surgeon requests review for outpatient joint pathway, patient is an acceptable candidate for outpatient joint program from anesthesia standpoint. - S/P L3-5 decompression/fusion (05/01/20): Grade 1 view, MAC#3, ETT 8.0 at [facility] Chart Review Chart Review: Acceptable Risk for Surgery and Patient seen in Pre Admission Testing Teaching & Discussion Pre-Anesthesia Teaching/Discussion Notes: Instructed NPO after midnight before surgery,except medications with 15 cc of water. Medication instructions provided according to the PAT guidelines. History Surgery Operation Date: 12/16/22 07:15 Proposed Procedures p Right Total Shoulder Arthroplasty, Biceps Tenodesis - Reddy Chou MD Height/Weight Height: 5 ft 8 in Weight: 87.7 kg Allergies Allergy/AdvReac Type Severity Reaction Status Date / Time No Known Allergies Allergy Verified 11/22/22 13:49 Medications Home Medications Medication Instructions Recorded Confirmed Last Taken atorvastatin 20 mg tablet (Lipitor) 20 mg PO PM 04/06/20 11/22/22 04/30/20 21:00 gabapentin 300 mg capsule 100 mg PO QAM 04/06/20 11/22/22 04/30/20 21:00 hydrochlorothiazide 50 mg tablet 50 mg PO QAM 04/06/20 11/22/22 04/30/20 05:00 bupropion HCl 300 mg 24 hr tablet, See Rx Instructions PO QAM 11/14/22 11/22/22 Unknown extended release (Wellbutrin XL) gabapentin 100 mg capsule 200 mg PO HS 11/22/22 11/22/22 Unknown ibuprofen 400 mg tablet 400 mg PO BID 11/22/22 11/22/22 Unknown Past Medical History Medical History Chronic back pain Leg radiation Depression History of back problems Hyperlipidemia Hypertension Osteoarthritis Skin lesion of back Spinal stenosis Exercise / Class Metabolic Activity II 4-5 Yardwork/Stairs/Walk up hill (one FS (no CP, no SOB)) Past Family History Family History Brother Family history of diabetes mellitus Diabetes Heart disease Hypertension Father Family history of diabetes mellitus Diabetes Heart disease Hypertension Mother Stroke Past Surgical History Surgical History Cancer BCC/SCC excision (back) History of adenoidectomy History of cardiac cath 1991 ("false positive stress test")- no stents Dx "Panic attack" History of cholecystectomy History of colonoscopy x3 History of herniorrhaphy History of laminectomy L3-5 decompression/fusion (05/01/20): Grade 1 view, MAC#3, ETT 8.0 at [facility] History of tonsillectomy Skin lesion In office procedure 11/14/2022 Dr. 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 Past Anesthesia History No Hx of Anesthesia Complications and No Family Hx of Anesthesia Complications History of PONV No Hx of PONV and No Hx of Motion Sickness Social History Smoking Status: Never smoker Do You Dip or Chew Tobacco: No Hx Alcohol Use: Yes Alcohol type: beer alcohol intake frequency: a few times a month Hx Substance Use: No substance use type: does not use Review of Systems Patient denies chest pain, shortness of breath, dyspnea on exertion, fever, chills, cough, wheezing, palpitations. Physical Exam Vital Signs VITALS BP 145/87 P 61 TEMP 98.5 SP02 96%RA RESP 16 PHYSICAL Full cervical extension range of motion. Full TMJ range of motion. TMD 4 finger breaths Mallampati Score 1 Dentition: missing molars, + crowns Lungs: clear throughout to auscultation Cardiac: regular rate and rhythm, no murmurs noted Spine: normal Carotid arteries: negative bruit Extremities: no LE edema Lab Results Anesthesia Preop Results Results Anesthesia Widget: WBC 6.27 K/ul (4.8-10.8) 11/29/22 Hgb 15.4 g/dl (14.0-18.0) 11/29/22 Hct 43.1 % (42.0-52.0) 11/29/22 Plt 244 K/uL (130-400) 11/29/22 Na 140 mmol/L (136-145) 11/29/22 K 4.0 mmol/L (3.5-5.1) 11/29/22 Cl 104 mmol/L (98-107) 11/29/22 CO2 29 mmol/L (21-32) 11/29/22 BUN 13 mg/dl (6-23) 11/29/22 Creat 0.73 mg/dl (0.6-1.4) 11/29/22 Glucose Level 90 mg/dl (70-99(Fasting)) 11/29/22 PT 10.3 Seconds (9.0-12.0) 11/29/22 PTT 26.0 Seconds (21.0-31.0) 11/29/22 INR 0.9 (0.9-1.1) 11/29/22 Urine Color Yellow 11/29/22 Urine Appearance Clear (Clear) 11/29/22 Urine pH 7.5 (4.5-7.5) 11/29/22 Urine Specific [place] 1.016 (1.000-1.030) 11/29/22 Urine Protein Negative (Negative) 11/29/22 Urine Glucose (UA) Negative (Negative) 11/29/22 Urine Ketones Trace (Negative) H 11/29/22 Urine Blood Negative (Negative) 11/29/22 Urine Nitrite Negative (Negative) 11/29/22 Urine Bilirubin Negative (Negative) 11/29/22 Urine Urobilinogen Negative (Negative) 11/29/22 Urine Leukocyte Esterase Negative (Negative) 11/29/22 Blood Type B Positive 11/29/22 Antibody Screen NEGATIVE 11/29/22 Testing Electrocardiogram Date: 11/29/22 SB at 57bpm. "Otherwise normal ECG" Chest X-Ray Date: 11/01/22 FINDINGS: No lines and tubes are seen. Calcified aortic knob is seen. The lungs are clear. No evidence of pleural effusion or pneumothorax. IMPRESSION: No acute chest disease. ADDENDUM Comparison was made to chest radiograph 04/20/[address] chest 02/07/2021. Previously noted calcified granulomata are again seen in the right lung. Cervical Spine Date: 07/02/22 FINDINGS: Demineralized appearance of the bones. 3 mm anterolisthesis C4 on C5, likely secondary to chronic facet arthrosis. Multilevel disc space narrowing, severe at C5-C6 and C6-C7. Severe multilevel facet arthrosis with moderate spondylitic spurring. No prevertebral edema. Lung apices appear clear. IMPRESSION: No acute fracture identified. Grade 1 anterolisthesis C4 on C5, likely secondary to chronic facet arthrosis. Degenerative changes as above.
--- NOTE | 2022-12-15 19:08 | History & Physical Report ---
Date of Service December 15, 2022 Assessment & Plan (1) Primary osteoarthritis, right shoulder: Plan: Treatment options discussed with the patient. He has failed conservative measures and would like to proceed with surgery. Risks, benefits and alternatives to surgery including but not limited to infection, DVT, pain, stiffness, need for revision surgery, damage to blood vessels, damage to nerves, PE, , were discussed with the patient and they wish to proceed. Plan for right total shoulder arthroplasty, open distal clavicle excision, biceps tenodesis scheduled for [facility] on December [address] Chou. Plan on outpatient physical therapy postoperatively. All questions answered. Patient will follow-up postop. History of Present Illness Chief Complaint: Right shoulder pain Primary Care Provider: Laura Yin MD 67-year-old male with past medical history significant for hypertension, high cholesterol, anxiety/depression, basal cell carcinoma, spinal stenosis who presents with ongoing right shoulder pain. He has failed conservative measures including steroid injections and anti-inflammatories. His pain is interfering with his daily activities. He would like to proceed with surgical intervention. Patient denies headaches, sweats, fevers, chills, double vision, blurred vision, cough, sore throat, dysphagia, chest pain, sob, wheezing, n/v/d/c, numbness, tingling, fatigue, urinary symptoms, mood disorders. ROS positive for right shoulder pain and stiffness. Allergies Allergy/AdvReac Type Severity Reaction Status Date / Time No Known Allergies Allergy Verified 11/22/22 13:49 Home Medications Medication Instructions Recorded Confirmed Type atorvastatin 20 mg tablet (Lipitor) 20 mg PO PM 04/06/20 11/22/22 History gabapentin 300 mg capsule 100 mg PO QAM 04/06/20 11/22/22 History hydrochlorothiazide 50 mg tablet 50 mg PO QAM 04/06/20 11/22/22 History bupropion HCl 300 mg 24 hr tablet, See Rx Instructions PO QAM 11/14/22 11/22/22 History extended release (Wellbutrin XL) gabapentin 100 mg capsule 200 mg PO HS 11/22/22 11/22/22 History ibuprofen 400 mg tablet 400 mg PO BID 11/22/22 11/22/22 History Past Med/Surg History Medical History Chronic back pain Leg radiation Depression History of back problems Hyperlipidemia Hypertension Osteoarthritis Skin lesion of back Spinal stenosis Surgical History Cancer BCC/SCC excision (back) History of adenoidectomy History of cardiac cath 1991 ("false positive stress test")- no stents Dx "Panic attack" History of cholecystectomy History of colonoscopy x3 History of herniorrhaphy History of laminectomy L3-5 decompression/fusion (05/01/20): Grade 1 view, MAC#3, ETT 8.0 at [facility] History of tonsillectomy Skin lesion In office procedure 11/14/2022 Dr. 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 Family History Brother Family history of diabetes mellitus Diabetes Heart disease Hypertension Father Family history of diabetes mellitus Diabetes Heart disease Hypertension Mother Stroke Social History (Updated 11/14/22 @ 13:35 by Cynthia Corbin RN) Smoking Status: Never smoker Second Hand Exposure: No; Do You Dip or Chew Tobacco: No; Tobacco Cessation Education Requested by Patient: No Hx Alcohol Use: Yes Alcohol type: beer Hx Substance Use: No Preferred Language: [place] Communication Ability: Effective Visual Impairment: No Limitations Statistics Tutor Required: No Beliefs That Will Affect Care: None marital status: Current Living Situation: Spouse current occupational status: retired How many Children do You have: 2 Other Information That Helps Us Care for You: No Feels Safe at Home: Yes Safety Concerns: Feels Safe At This Time Diet: regular during the past year weight has: remained stable Assistive Devices: Glasses and Hearing Aid - Bilateral Review of Systems All systems reviewed & are unremarkable except as noted in HPI & below Physical Exam Constitutional: well developed and well nourished; no acute distress Eyes: PERRL, conjunctivae normal, anicteric sclerae ENMT: external ear and nose normal, oropharynx normal Neck: trachea midline, no thyromegaly Respiratory: normal respiratory effort, lungs clear to auscultation Cardiovascular: RRR, no murmur, no edema Musculoskeletal: Right shoulder: Tenderness anterior lateral acromion, anterior glenoid, AC joint. Positive impingement signs. Positive speeds and [place]'s. [id number] crepitation right shoulder with range of motion and strength testing. Abduction actively to 90 degrees, forward flexion 110 degrees, external rotation to 30 degrees. Strength is normal. Skin: no rashes, warm and dry Neurologic: patellar DTR's 2+ bilat, sensation intact Psychiatric: A+Ox3, euthymic affect Results & Data Diagnostic Findings Right shoulder radiographs demonstrate end-stage osteoarthritis right shoulder, [id number] glenohumeral joint. There is arthritic changes AC joint as well w ith subacromial spurring. MRI demonstrates rotator cuff tendinopathy with possible partial tearing.
[~2022-12-16 10:51] MED LIST changes: +BUPIVACAINE 0.5 % 5 MG/1 ML PF 10ML VIAL ONE; +EpINEphrine HCL INJ 1 MG/ML 1ML SYRINGE ONE; +FAMOTIDINE 20 MG TAB PO SCH; +LIDOCAINE 2% 2 ML VIAL/AMP(20MG/ML) INFIL ONE; +LR 60ML/HR IV SCH; +METOCLOPRAMIDE HCL 10 MG TABLET PO SCH; +MIDAZOLAM HCL 1 MG/ML 2ML VIAL ONE; +PROPOFOL IV EMULSION 10 MG/ML 20 ML VIAL IV ONE; +TRANEXAMIC ACID 1,000 MG **IV Intra-op IV SCH; +TRANEXAMIC ACID 1,000 MG **IV Pre-op IV SCH; +dexAMETHasone 4 MG TAB PO SCH; +fentaNYL citrate PF 100 MCG/2 ML VIAL ONE
[2022-12-16] MEDS ORDERED: ONDANSETRON INJ 2 MG/ML 2 ML VIAL IV PRN ×2 (11:32→16:55)
[2022-12-16] MEDS ORDERED: ATROPINE SULFATE 0.1 MG/ML 10ML SYR IV PRN (11:32)
[2022-12-16] MEDS ORDERED: ePHEDrine sulfate 50 MG/ML AMP IV PRN (11:32)
--- NOTE | 2022-12-16 11:48 | History & Physical Bridge Note ---
Date of Service December 16, 2022 History & Physical Bridge Note I have examined the patient, reviewed the History & Physical and in the interval since the performance of the History & Physical I have noted the following changes of clinical significance: no changes noted
[2022-12-16] MEDS ORDERED: DEXAMETHASONE SOD INJ 4 MG/ML VIAL ONE (12:14)
[2022-12-16] MEDS ORDERED: NEOSTIGMINE METHYLSULFATE 1 MG/ML 10ML VIAL ONE (12:14)
[2022-12-16] MEDS ORDERED: ROCURONIUM BROMIDE 10 MG/ML 5 ML VIAL IV ONE ×3 (12:14→14:48)
[2022-12-16] MEDS ORDERED: GLYCOPYRROLATE 0.2 MG/ML VIAL ONE (12:14)
[2022-12-16] MEDS ORDERED: ONDANSETRON INJ 2 MG/ML 2 ML VIAL ONE (12:14)
[2022-12-16] MEDS ORDERED: PROPOFOL IV EMULSION 10 MG/ML 20 ML VIAL IV ONE (13:07)
[2022-12-16] MEDS ORDERED: PHENYLEPHRINE 100MCG/ML 5ML SYR ONE (14:21)
--- NOTE | 2022-12-16 15:26 | Operative Report ---
Post Operative Report Pre & Post Diagnosis Operation Date: 12/16/22 12:25 Pre-Op Diagnosis: Primary osteoarthritis end-stage glenohumeral, and AC joint, loose bodies and biceps tendinopathy right shoulder Post-Op Diagnosis: Primary osteoarthritis end-stage glenohumeral, and AC joint, loose bodies multiple and biceps tendinopathy, right shoulder I identified the patient and participated in the time-out.: Yes Procedure Operation Date: 12/16/22 12:25 Actual Procedures p Stemless Right Total Shoulder Arthroplasty,Distal Clavicle Excision(1 cm), Biceps Tenodesis(Right) - Reddy Chou MD Surgeon Reddy Chou MD Storage Management Consultant Rodri RANGEL Estimated Blood Loss 100 Findings Consistent with Post-Op Diagnosis Specimens humeral head cut and distal clavicle Drains 2 Hemovac Anesthesia Type General Regional Complications none Disposition Disposition: Recovery Room Indications 67 yo male with chronic right shoulder pain and stiffness with end-stage glenohumeral osteoarthritis [id number] with large typical inferior osteophytes with MRI demonstrating intact rotator cuff with marked biceps tenosynovitis and loose bodies. Description of Procedure patient was taken to the operating room anesthetized under regional block and general anesthetic. Patient was placed in a 40 degree beachchair position with a foam headrest protective eyewear all extremities padded teds and SCDs were placed. A towel roll was placed on the medial border of the scapula of the right upper extremity. The arm was examined and range of motion demonstrated 120 degrees forward flexion 70 degrees AB duction and 20 degrees external rotation. An anterior deltopectoral approach was performed. Longitudinal incision was made in deltopectoral interval. Skin incised sharply and subcutaneous flaps elevated. The deltopectoral interval was identified. The cephalic vein demonstrated Normal well-developed vein. The cephalic vein was retracted laterally with the deltoid. The upper centimeter of the pectoralis was released for inferior exposure. Biceps tendon demonstrated Marked fluid collection on the biceps tendon with loose bodies in the tendon sheath and large bicipital groove spurs. The biceps was tenodesed to the pectoralis tendon using #2 FiberWire yyqbgw-hh-[id number] sutures. Proximal biceps was resected. The large osteophytes were resected with a rongeur. Rotator cuff findings demonstrated Intact rotator cuff. The circumflex vessels were tied off with silk ties and divided laterally. The subscapularis muscle fibers were split at the level of circumflex vessels and released off the inferior capsule with a Kitner elevator and then a blunt Hohmann retractor was placed protect the axillary nerve. The rotator interval was released down to the level of the glenoid. The subscapularis tendon was taken down with a transtendinous incision leaving a cuff of tissue for repair on the lesser tuberosity. The humeral head findings demonstrated Large inferior humeral osteophytes eburnated bone with complete loss of articular cartilage on the entire humeral head. The inferior osteophytes were resected using an artist chisel and rongeur. The inferior capsule was released off the bone subperiosteally using a Hill elevator. A #1 Vicryl traction suture was placed into the free edge of the subscapularis tendon. A Fukuda retractor was placed into the joint. Capsule was released with Ahmadi scissors down to the glenoid and off of the anterior glenoid to the rotator interval which was released to meet the capsular release creating a 360 degree release of subscapularis tendon. An anterior Bankart retractor was placed. The glenoid and labral findings demonstrated type A Concentric wear pattern with complete eburnated bone no articular cartilage remaining on the glenoid and degenerative tearing circumferentially around the labrum and the biceps intra-articularly was widened and flattened out with chronic tendinopathy. An anterior-inferior and posterior inferior capsule release was performed electrocautery on bone and a Hill elevator. The axillary nerve was protected inferiorly with the blunt Hohmann. Attention was taken back to the humeral head. Humeral head was exposed with extension and external rotation. The oscillating saw was used to make an anatomic neck cut removing the articular surface. All the circumferential remaining osteophytes were trimmed with a rongeur. The humerus was sized for a 3 nucleus and a56 humeral head. The bone was assessed with a thumb press test and there was solid cancellous bone. The guide for the nucleus was placed centrally and then the guidepin was placed. The surface reamer was used followed by the central drill for the nucleus. The trial nucleus was inserted and the cut protector was placed. The humerus was retracted posterior to the glenoid . A Tornier retractor ,Hohmann retractors as well as an anterior Bankart retractor were placed. The glenoid was fully exposed. The Tornier Cortiloc glenoid was used. The medium 30 radius size was chosen. The central drill hole was made followed by the reamer for the glenoid followed by widening the central hole for the central post. The guide for the peripheral drill holes was placed and the drill holes were made. The trial reduction performed with stable fixation. The trial removed and the glenoid copiously irrigated with pulsed saline solution. The drill holes were packed with epinephrine-soaked tampons. The Palacos G cement was vacuum mixed. The Cortiloc medium 30 radius glenoid component was then cemented in position after drying the glenoid after removal of the tampons. Fixation was excellent. All excess cement was cleared. When the cement cured we moved onto removing the cut protector doing a trial reduction with a 56 x 21 millimeter soft tissue balancing humeral head trial. Stability was assessed and was stable. Soft tissue tension on the subscapularis tendon was satisfactory. The trial components of the humeral head were removed and the 3 drill holes were made in the harder bone in the biceps groove area and transosseous #5 FiberWire sutures were placed. Then the humeral cut surface was reexposed with retractors and after irrigation the size 3 nucleus was impacted leaving it slightly proud until the simplicity 56 x 21 humeral head was placed into the nucleus and then both were impacted into the humerus with a tight press-fit. The humerus was reduced to the glenoid. The stability was verified. The subscapularis tendon was repaired in 2 ukaqyo-xc-epqdz #2 FiberWire sutures. Lateral row fixation was performed with interrupted nokrmb-dk-cqkhb #2 FiberWire sutures and rotator interval was closed with #2 FiberWire sutures. Range of motion demonstrated 140 degrees flexion 90 degrees AB duction and 30 degrees external rotation without tension on repair. The pectoralis was repaired with lhbhdq-mt-[id number] #2 FiberWire sutures placing sutures back through the biceps tendon to reinforce the tenodesis. A transverse incision was made over the AC joint. The skin was incised sharply and subcutaneous flaps were elevated off the fascia. A transverse incision was made over the AC joint fascia and subperiosteal dissection performed anteriorly and posteriorly to expose 1 cm of the distal clavicle which was resected with an oscillating saw. There was an oblique AC joint and arthritic changes in the AC joint. Some inferior spurs at the AC joint as well. The wound was irrigated and then the deltoid trapezius fascia repaired with cfrham-gx-yefan #2 FiberWire sutures with a tight excellent fixation. 2 Hemovac Drains were placed into the deltopectoral incisional area.. The deltopectoral interval was repaired with airawx-ct-kytzp #1 Vicryl sutures. The subcutaneous tissue was repaired with 2-0 Vicryl sutures and the skin was closed with beto 2 both of the incisions made. Sterile dressings were applied and a sling immobilizer. The patient tolerated the procedure well. Rodri RANGEL acted as housekeeping assistant throughout the procedure. He functioned as housekeeping assistant assisting in all aspects of the procedure including patient positioning prepping draping, arm positioning, soft tissue retraction,, instrument management, subcutaneous and skin closure and postop care the patient as well. I attest to the content of the Intraoperative Record and any orders documented therein. Any exceptions are noted below.
[2022-12-16] MEDS: fentaNYL citrate PF 100 MCG/2 ML VIAL IV PRN ×4 (15:57→16:12)
--- NOTE | 2022-12-16 16:10 | XRay Report ---
XR shoulder RT min 2V routine HISTORY: 67 years-old Male Post shoulder surgery right shoulder arthroplasty COMPARISON: 07/02/2022 TECHNIQUE: 3 views of the right shoulder FINDINGS: Right shoulder arthroplasty demonstrates satisfactory alignment. Interval resection of the distal rig ht clavicle. Overlying skin beto with expected postoperative soft tissue swelling and deep tissue air with surgical drainage catheter in place. Scattered calcified granulomata of the right lung. IMPRESSION: Expected postoperative changes with right shoulder arthroplasty and distal clavicular res ection. ACT 112: Negative or not required by law. The above report was generated using voice recognition software. It may contain grammatical, syntax o r spelling errors. Electronically signed by: Alvin Chaudhry M.D. 12/16/2022 4:09 PM
--- NOTE | 2022-12-16 16:26 | Anesthesiology Progress Note ---
Date of Service December 16, 2022 Anesthesia Post Procedure Vital Signs Vital Signs: Temp Pulse Pulse Resp BP Pulse Ox O2 Del Method 12/16/22 16:20 36.7 C 75 17 121/83 95 Nasal Cannula 12/16/22 16:10 67 20 112/68 92 Room Air 12/16/22 16:00 75 18 125/80 95 Oxymask 12/16/22 15:50 66 21 111/63 96 Oxymask 12/16/22 15:40 70 18 112/63 95 Oxymask 12/16/22 15:30 36.1 C L 69 20 128/74 98 Oxymask 12/16/22 11:18 36.3 C L 83 18 146/97 H 98 Room Air O2 Flow Rate 12/16/22 16:20 2 12/16/22 16:10 12/16/22 16:00 4 12/16/22 15:50 4 12/16/22 15:40 4 12/16/22 15:30 6 12/16/22 11:18 Transfer of Care Handoff Completed per policy Notes Mental Status: alert / awake / arousable Patient Amnestic to Procedure: Yes Nausea / Vomiting: adequately controlled Pain: adequately controlled Airway Patency, RR, SpO2: stable & adequate BP & HR: stable & adequate Hydration State: stable & adequate Anesthetic Complications: no major complications apparent and Pt Satisfied with anesthetic care
[2022-12-16] MEDS ORDERED: HYDROmorphone INJ 0.5 MG/0.5 ML SYR IV PRN (16:55)
[2022-12-16] MEDS ORDERED: NALOXONE HCL 0.4 MG/1 ML VIAL/CARP IV PRN (16:55)
[2022-12-16] MEDS ORDERED: METOCLOPRAMIDE HCL INJ 5 MG/ML 2 ML VIAL IV PRN (16:55)
[2022-12-16] MEDS ORDERED: bisacodyL 10 MG SUPP PR PRN (16:55)
[2022-12-16] MEDS ORDERED: MAGNESIUM HYDROXIDE SUSP 30 ML UDC PO PRN (16:55)
[2022-12-16] MEDS: SODIUM CHLORIDE 0.9% 1,000 ML IV SCH (17:39)
[2022-12-16] MEDS ORDERED: GABAPENTIN 100 MG CAP PO SCH (21:00)
[2022-12-16] MEDS ORDERED: SENNA 8.6 MG TAB PO SCH (21:00)
[2022-12-16] MEDS ORDERED: ATORVASTATIN 20 MG TAB PO SCH (21:00)
[2022-12-16] MEDS ORDERED: hydrOXYzine HCl 10 MG TAB PO SCH (21:00)
[2022-12-16] MEDS: ceFAZolin 2000MG 2,000 MG/15 ML SYR IV SCH (21:29)
[2022-12-16] MEDS: traMADol HCL 50 MG TABLET PO PRN (21:29)
[2022-12-16] MEDS: DOCUSATE SODIUM 100 MG CAP PO SCH (21:29)
[2022-12-16] MEDS: ACETAMINOPHEN 500 MG TAB PO SCH (22:25)
[2022-12-17] MEDS: SODIUM CHLORIDE 0.9% 1,000 ML IV SCH (04:40)
[2022-12-17] MEDS: ceFAZolin 2000MG 2,000 MG/15 ML SYR IV SCH (05:50)
[2022-12-17] MEDS: traMADol HCL 50 MG TABLET PO PRN (05:50)
[2022-12-17] MEDS: ACETAMINOPHEN 500 MG TAB PO SCH (06:31)
[2022-12-17 07:38] LABS: Basophils # (auto) 0.03 K/uL (0.00-0.20); Basophils % (auto) 0.1 %; Hematocrit (blood only) 40.7 % (42.0-52.0); Immature Granulocytes # (auto) 0.13 K/uL (0.01-0.20); Immature Granulocytes % (auto) 0.6 %; Lymphocytes # (auto) 1.14 K/uL (1.20-3.40); Lymphocytes % (auto) 5.6 %; Mean Corpuscular Hemoglobin 31.7 pg (25.0-34.0); Mean Corpuscular Hgb Conc 34.4 g/dL (32.0-36.0); Mean Corpuscular Volume 92.1 fL (80.0-100.0); Mean Platelet Volume 11.8 fL (9.4-12.4); Monocytes # (auto) 1.91 K/uL (0.11-0.59); Monocytes % (auto) 9.3 %; Neutrophils # (auto) 17.23 K/uL (1.40-6.50); Neutrophils % (auto) 84.4 %; Platelet Count 268 K/uL (130-400); RDW Coefficient of Variation 12.5 % (11.5-14.5); Red Blood Count 4.42 M/uL (4.70-6.10); White Blood Count 20.44 K/ul (4.8-10.8)
[2022-12-17 08:06] LABS: BUN Creatinine Ratio 19.1 (10-20); Calcium 9.1 mg/dl (8.6-10.3); Creatinine Clr Calc Pharmacy 84.4 ml/min; Est GFR (African American) 101.1 ml/min; Est GFR (Non-African American) 87.2 ml/min; Potassium 3.7 mmol/L (3.5-5.1)
--- NOTE | 2022-12-17 08:14 | Orthopedic Progress Note ---
Date of Service December 17, 2022 Assessment & Plan (1) Primary osteoarthritis, right shoulder: Plan: Postop day #1 right total shoulder arthroplasty, open distal clavicle excision. -PT/OT: Follow TSA protocol. No active motion of the shoulder. -DVT prophylaxis: SCDs -AM labs: Hemoglobin at 14 this morning. Leukocytosis likely reactive due to surgical stress versus perioperative steroids. Patient is asymptomatic. -Pain management as written -Discharge planning: Plan to discharge home today after therapy. Admission and Anticipated Discharge Date Admission Date: December 16, 2022 Subjective Patient is postop day 1 right shoulder. He is feeling well this morning. Minimal pain. No current complaints. Denies chest pain, shortness of breath, nausea/vomiting/diarrhea, headaches or dizziness. Review of Systems Review of Systems: All systems reviewed & are unremarkable except as noted in Subjective Physical Exam Physical Exam: Right shoulder: Sling is in place. Dressing is clean, dry, intact. Fingers are mobile. Some mild weakness with wrist extension and development advisor strength with some mild numbness still likely residual from nerve block. Distally neurovascular status and sensation is grossly intact. Constitutional: WD/WN, vitals as above Results & Data Vital Signs (Past 12 Hours) Vital Signs Temp Pulse Pulse Resp BP Pulse Ox O2 Del Method 12/17/22 07:22 36.6 C 87 16 113/70 94 Room Air 12/17/22 03:15 36.4 C L 86 18 116/72 91 Room Air 12/16/22 23:25 36.7 C 105 H 18 100/62 91 Nasal Cannula O2 Flow Rate 12/17/22 07:22 12/17/22 03:15 12/16/22 23:25 2 Laboratory Results Lab Results 12/17/22 12/17/22 Range/Units 06:49 06:49 WBC 20.44 H (4.8-10.8) K/ul RBC 4.42 L (4.70-6.10) M/uL Hgb 14.0 (14.0-18.0) g/dl Hct 40.7 L (42.0-52.0) % MCV 92.1 (80.0-100.0) fL MCH 31.7 (25.0-34.0) pg MCHC 34.4 (32.0-36.0) g/dL RDW Std Deviation 42.0 (36.4-46.3) fL RDW Coeff of Don 12.5 (11.5-14.5) % Plt Count 268 (130-400) K/uL MPV 11.8 (9.4-12.4) fL Immature Gran % (Auto) 0.6 % Neut % (Auto) 84.4 % Lymph % (Auto) 5.6 % Gregory % (Auto) 9.3 % Eos % (Auto) 0.0 % Baso % (Auto) 0.1 % Neut # (Auto) 17.23 H (1.40-6.50) K/uL Lymph # (Auto) 1.14 L (1.20-3.40) K/uL Gregory # (Auto) 1.91 H (0.11-0.59) K/uL Eos # (Auto) 0.00 (0.00-0.50) K/uL Baso # (Auto) 0.03 (0.00-0.20) K/uL Immature Gran # (Auto) 0.13 (0.01-0.20) K/uL Sodium 138 (136-145) mmol/L Potassium 3.7 (3.5-5.1) mmol/L Chloride 105 (98-107) mmol/L Carbon Dioxide 24 (21-32) mmol/L Anion Gap 9 (3-11) BUN 17 (6-23) mg/dl Creatinine 0.89 (0.6-1.4) mg/dl Est Cr Clr Drug Dosing 84.4 ml/min Est GFR ( Amer) 101.1 ml/min Est GFR (Non-Af Amer) 87.2 ml/min BUN/Creatinine Ratio 19.1 (10-20) Glucose 135 H (70-99(Fasting)) mg/dl Calcium 9.1 (8.6-10.3) mg/dl
[2022-12-17] MEDS ORDERED: hydroCHLOROthiazide 25 MG TAB PO SCH (09:00)
[2022-12-17] MEDS ORDERED: buPROPion XL 150 MG TABCR PO SCH (09:00)
[2022-12-17] MEDS ORDERED: GABAPENTIN 100 MG CAP PO SCH (09:00)
[2022-12-17] MEDS ORDERED: MULTIVITAMIN TAB PO SCH (09:00)
[2022-12-17] MEDS: DOCUSATE SODIUM 100 MG CAP PO SCH (09:13)
--- NOTE | 2022-12-19 08:20 | Discharge Summary ---
Date of Service December 19, 2022 Admission HPI Per Admitting Provider 67-year-old male with past medical history significant for hypertension, high cholesterol, anxiety/depression, basal cell carcinoma, spinal stenosis who presents with ongoing right shoulder pain. He has failed conservative measures including steroid injections and anti-inflammatories. His pain is interfering with his daily activities. He would like to proceed with surgical intervention. Patient denies headaches, sweats, fevers, chills, double vision, blurred vision, cough, sore throat, dysphagia, chest pain, sob, wheezing, n/v/d/c, numbness, tingling, fatigue, urinary symptoms, mood disorders. ROS positive for right shoulder pain and stiffness. Admission Exam Per Admitting Provider Constitutional:M well developed and well nourished; no acute distress Eyes: PERRL, conjunctivae normal, anicteric sclerae ENMT: external ear and nose normal, oropharynx normal Neck: trachea midline, no thyromegaly Respiratory: normal respiratory effort, lungs clear to auscultation Cardiovascular: RRR, no murmur, no edema Musculoskeletal: Right shoulder: Tenderness anterior lateral acromion, anterior glenoid, AC joint. Positive impingement signs. Positive speeds and Jewell's. Bdvh-du-bfir crepitation right shoulder with range of motion and strength testing. Abduction actively to 90 degrees, forward flexion 110 degrees, external rotation to 30 degrees. Strength is normal. Skin: no rashes, warm and dry Neurologic: patellar DTR's 2+ bilat, sensation intact Psychiatric: A+Ox3, euthymic affect Principal Diagnosis Right shoulder osteoarthritis Discharge Exam Right shoulder: Sling is in place. Dressing is clean, dry, intact. Fingers are mobile. Some mild weakness with wrist extension and vision mixer strength with some mild numbness still likely residual from nerve block. Distally neurovascular status and sensation is grossly intact. Discharge Data Allergies Allergy/AdvReac Type Severity Reaction Status Date / Time No Known Allergies Allergy Verified 12/16/22 11:27 Consultations 12/12/22 11:30 Consult Hospitalist Routine Procedures Performed Operation Date: 12/16/22 12:25 Actual Procedures p Right Total Shoulder Arthroplasty,Distal Clavicle Excision, Biceps Tenodesis(Right) - Reddy Chou MD Ordered Studies 12/16/22 05:00 US - OR guided needle placemen Routine Hospital Course (1) Primary osteoarthritis, right shoulder: Postop day #1 right total shoulder arthroplasty, open distal clavicle excision. -PT/OT: Follow TSA protocol. No active motion of the shoulder. -DVT prophylaxis: SCDs -AM labs: Hemoglobin at 14 this morning. Leukocytosis likely reactive due to surgical stress versus perioperative steroids. Patient is asymptomatic. -Pain management as written -Discharge planning: Plan to discharge home today after therapy. Lab Results 12/17/22 12/17/22 Range/Units 06:49 06:49 WBC 20.44 H (4.8-10.8) K/ul RBC 4.42 L (4.70-6.10) M/uL Hgb 14.0 (14.0-18.0) g/dl Hct 40.7 L (42.0-52.0) % MCV 92.1 (80.0-100.0) fL MCH 31.7 (25.0-34.0) pg MCHC 34.4 (32.0-36.0) g/dL RDW Std Deviation 42.0 (36.4-46.3) fL RDW Coeff of Don 12.5 (11.5-14.5) % Plt Count 268 (130-400) K/uL MPV 11.8 (9.4-12.4) fL Immature Gran % (Auto) 0.6 % Neut % (Auto) 84.4 % Lymph % (Auto) 5.6 % Hays % (Auto) 9.3 % Eos % (Auto) 0.0 % Baso % (Auto) 0.1 % Neut # (Auto) 17.23 H (1.40-6.50) K/uL Lymph # (Auto) 1.14 L (1.20-3.40) K/uL Hays # (Auto) 1.91 H (0.11-0.59) K/uL Eos # (Auto) 0.00 (0.00-0.50) K/uL Baso # (Auto) 0.03 (0.00-0.20) K/uL Immature Gran # (Auto) 0.13 (0.01-0.20) K/uL Sodium 138 (136-145) mmol/L Potassium 3.7 (3.5-5.1) mmol/L Chloride 105 (98-107) mmol/L Carbon Dioxide 24 (21-32) mmol/L Anion Gap 9 (3-11) BUN 17 (6-23) mg/dl Creatinine 0.89 (0.6-1.4) mg/dl Est Cr Clr Drug Dosing 84.4 ml/min Est GFR ( Amer) 101.1 ml/min Est GFR (Non-Af Amer) 87.2 ml/min BUN/Creatinine Ratio 19.1 (10-20) Glucose 135 H (70-99(Fasting)) mg/dl Calcium 9.1 (8.6-10.3) mg/dl Total Time Total Time Spent Total Time Spent (In Minutes): 20 Discharge Plan Discharge Items Patient Disposition: Home - Self-Care Reason For Visit: POST OP Discharge Diagnosis: Right shoulder osteoarthritis Activity: Per Instructions section Non-emergency contact: Surgeon Call non-emergency contact if: you have any medication questions, your pain is not controlled, your pain is concerning for you, you have a fever, your temperature is above 101, your wound has increased redness and your wound has increased drainage Follow-up/Referrals: Laura Yin MD [Primary Care Provider] - Diet: Regular Addtl Attending Provider Instructions: ACTIVITY RECOMMENDATIONS: SELF CARE INSTRUCTIONS AFTER TOTAL SHOULDER ARTHROPLASTY A. You may do daily exercises as taught in physical therapy while in hospital. No lifting with the operative arm. Please schedule your outpatient physical therapy appointment to begin within 2-3 days after leaving the hospital. Specific restrictions will be written on your physical therapy prescription that is provided to you. B. You are to wear your sling/immobilizer at all times EXCEPT when performing your daily exercises, participating in physical therapy and for hygiene purposes. C. You may perform dry, daily dressing changes. Please keep your incision covered. You may shower 48 hours after surgery. Do not apply soap or any ointment/lotions directly over incision. Do not soak incision in bath tub/swimming pool. D. You may use ice as needed to operative shoulder. SPECIAL CARE INSTRUCTIONS: VERY IMPORTANT TO READ AND REVIEW A. There are a few signs you need to watch for after you are home. Call [facility] at [phone] if you experience any of the followin. Increased severe shoulder pain. Some pain is expected especially when you exercise. 2. Increased swelling in you shoulder or arm; pain or swelling in either upper extremity. 3. Any fluid drainage from the incision. 4. Shortness of breath or chest pain. B. Please call [facility] at [phone] if you have any questions or concerns about your operation or recovery. C. Call your physician if: 1. Temperature is greater than 101 degrees (F). 2. Pain is not relieved by prescribed pain medications. 3. Increase drainage or redness from incision. 4. Unanswered questions or concerns. FOLLOW UP VISIT: Please call [facility] at [phone] to schedule a follow up appointment with Dr. Chou or his PA in 12-14 days from your surgery date. Stand-Alone Forms: My [facility] [employer], Smoking Cessation Medications and DC Order Prescriptions: New tramadol 50 mg Tablet 50 - 100 mg PO .Q4h-6h MDD 6 PRN (Reason: pain) Qty: 30 0RF Rx Instructions: Ongoing therapy, Dr. Chou supervising acetaminophen [Tylenol Extra Strength] 500 mg Tablet 1,000 mg PO Q8 Qty: 60 0RF Continued bupropion HCl [Wellbutrin XL] 300 mg tablet extended release 24 hr See Rx Instructions PO QAM Rx Instructions: 450 mg orally daily in the morning; atorvastatin [Lipitor] 20 mg Tablet 20 mg PO PM hydrochlorothiazide 50 mg Tablet 50 mg PO QAM gabapentin 300 mg Capsule 100 mg PO QAM gabapentin 100 mg Capsule 200 mg PO HS hydroxyzine HCl 10 mg Tablet 20 mg PO HS Discontinued ibuprofen 400 mg Tablet 400 mg PO BID acetaminophen 500 mg Tablet 500 mg PO Q6H PRN (Reason: Pain) Discharge Orders: Discharge Order (Routine); Ordered 12/17/22 Ordered By: Rodri Engel/Other Patient Handouts: Shoulder Replace Home Recovery Admission Data Admit Date/Time: 12/16/22 15:27 Attending Provider: Reddy Chou Admit Provider: Reddy Chou Primary Care Provider: Laura Yin Other Providers: Isaías Mayfield Other Interventions: Discharge Summary Assessment (RN) Last Done: 12/17/22 11:51
== END 2022-12-17 12:31 | disposition home or self-care (01) ==
LOC: 3N 10:51 → ASU 10:51